=== PATIENT | female | born 1990 | race Caucasian/White ===

== ENCOUNTER 2018-08-19 14:01 | Emergency (ER) | payer OTHER ==
[2018-08-19] MEDS ORDERED: CYCLOBENZAPRINE 10 MG TABLET PO STA (14:20)
[2018-08-19] MEDS ORDERED: KETOROLAC 60 MG/2 ML VIAL IM STA (14:20)
--- NOTE | 2018-08-19 14:25 | ED Physician Documentation ---
PD HPI BACK INJURY - Stated complaint Stated Complaint: LOWER BACK PX - History obtained from History obtained from: Patient, Family - History of Present Illness Location: Lower Type of injury: Other (lifting her dog and felt a sudden onset of low back pain with numbness and tingling to the B feet. Numbness now resolved. Pain still present.) Where injury occurred: Home Timing - onset: How many hours ago (2) Timing - duration: Hours (2) Timing - details: Abrupt onset Pain level max: 10 Pain level now: 5 Quality: Pain, Spasm Improved by: Rest Worsened by: Moving, Palpating Associated symptoms: Numbness (now resolved). No: Fever, Weakness, Incontinent of urine, Unable to urinate, Hematuria Contributing factors: No: Anticoagulated, Prior back surgery, Prosthetic joint, Other injury, Work related Similar symptoms before: Has not had sx before Recently seen: Not recently seen Review of Systems Ten Systems: 10 systems reviewed and negative Constitutional: denies: Fever, Chills Ears: denies: Ear pain Nose: denies: Rhinorrhea / runny nose, Congestion Cardiac: denies: Chest pain / pressure Respiratory: denies: Cough GI: denies: Nausea, Vomiting, Diarrhea : denies: Dysuria, Frequency, Hesitancy, Unable to Void, Incontinent, Now EGA Skin: denies: Rash Musculoskeletal: denies: Neck pain Neurologic: denies: Focal weakness, Headache PD PAST MEDICAL HISTORY - Past Medical History Cardiovascular: None Respiratory: None Endocrine/Autoimmune: None 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 HEENT: None Psych: None Musculoskeletal: None Derm: None - Past Surgical History Past Surgical History: No - Present Medications Home Medications: Ambulatory Orders Medication Instructions Recorded Confirmed Cyclobenzaprine [Flexeril] 10 mg PO TID PRN #20 tablet 01/20/16 Hydrocodone/Acetaminophen 1 - 2 each PO Q6H PRN #10 tablet 01/20/16 [Hydrocodon-Acetaminophen 5-325] Ibuprofen [Motrin] 800 mg PO Q8H PRN #30 tablet 01/20/16 Cyclobenzaprine [Flexeril] 10 mg PO TID PRN #20 tablet 08/19/18 Hydrocodone/Acetaminophen 1 - 2 each PO Q6H PRN #14 tablet 08/19/18 [Hydrocodon-Acetaminophen 5-325] Meloxicam [Mobic] 15 mg PO DAILY PRN #20 tablet 08/19/18 predniSONE [Deltasone] 10 mg PO [id number] #42 tab 08/19/18 - Allergies Allergies/Adverse Reactions: Allergies Allergy/AdvReac Type Severity Reaction Status Date / Time levofloxacin AdvReac Unknown Verified 08/19/18 14:20 - Social History Does the pt smoke?: No Smoking Status: Never smoker Does the pt drink ETOH?: No Does the pt have substance abuse?: No - Immunizations Immunizations are current?: Yes - POLST Patient has POLST: No PD ED PE NORMAL - Vitals Vital signs reviewed: Yes - General General: Alert and oriented X 3, No acute distress - HEENT HEENT: Moist mucous membranes - Neck Neck: Supple, no meningeal sign - Cardiac Cardiac: RRR - Respiratory Respiratory: No respiratory distress, Clear bilaterally - Abdomen Abdomen: Soft, Non tender, Non distended - Back Back: Other (Mild midline tenderness approximately L3. No step-off or deformity. Paraspinal spasm present.) - Derm Derm: Warm and dry - Extremities Extremities: Other (Normal bilateral lower extremity patellar and ankle jerk reflexes. Normal great toe extension bilaterally. no saddle anesthesia) - Neuro Neuro: No motor deficit, No sensory deficit - Psych Psych: Normal mood Results - Vitals Vitals: Vital Signs - 24 hr 08/19/18 14:10 Temperature 37.1 C Heart Rate 56 L Respiratory 16 Rate Blood Pressure 115/90 H O2 Saturation 100 Oxygen O2 Source Room air - Rads (name of study) L spine xray Radiology: Prelim report reviewed, EMP read contemporaneously, See rad report (No fracture or subluxation. 2. Mild L4-L5 disk height loss. 3. Sacralized L5 vertebra. Developmental variant. ) PD MEDICAL DECISION MAKING - ED course Complexity details: reviewed results, re-evaluated patient, considered differential, d/w patient ED course: 28-year-old female with what appears to be acute sciatica. Will place on steroids for home as well as anti-inflammatories. Hydrocodone for breakthrough pain. No evidence of cauda equina or epidural abscess. Ambulating well. Pain well controlled. Patient counseled regarding signs and symptoms for which I believe and urgent re-evaluation would be necessary. Patient with good understanding of and agreement to plan and is comfortable going home at this time This document was made in part using voice recognition software. While efforts are made to proofread this document, sound alike and grammatical errors may occur. Departure - Departure Disposition: 01 Home, Self Care Clinical Impression: Sciatica Qualifiers: Laterality: bilateral Qualified Code(s): M54.31 - Sciatica, right side Disc herniation Qualifiers: Spinal region: lumbar Qualified Code(s): M51.26 - Other intervertebral disc displacement, lumbar region Condition: Good Instructions: ED Sciatica Follow-Up: Edison Johnson ARNP [Primary Care Provider] - Within 1 week Prescriptions: Cyclobenzaprine [Flexeril] 10 mg PO TID PRN #20 tablet PRN Reason: Spasms Hydrocodone/Acetaminophen [Hydrocodon-Acetaminophen 5-325] 1 - 2 each PO Q6H PRN #14 tablet PRN Reason: pain Meloxicam [Mobic] 15 mg PO DAILY PRN #20 tablet PRN Reason: pain predniSONE [Deltasone] 10 mg PO [id number] #42 tab Comments: Use the medications as prescribed. Return if you worsen. This should improve over the next few days. Follow-up with your doctor for further evaluation and care. Do not drink alcohol or drive while on narcotic pain medicine. Note that many narcotic pain relievers also contain tylenol/acetaminophen. Please ensure that your total dose of acetaminophen from all sources does not exceed 3 grams (3000mg) per day. You may constipated on this medication, take a stool softener such as "Colace" twice a day while you are on it. Also recommend a dkpx-zxv-tgkwsrn laxative such as senna or MiraLAX any day that you do not have a bowel movement. If you received narcotic pain medication in the emergency department, do not drive or operate machinery for the next 24 hours.
--- NOTE | 2018-08-19 16:03 | XRAY Report ---
Reason: lifting dog, sudden onset low back pain Procedure Date: 08/19/2018 Accession Number: [id number] / [id number] Procedure: XR - Lumbar Spine 2 View CPT Code: FULL RESULT: EXAM: LUMBOSACRAL SPINE RADIOGRAPHY EXAM DATE: 08/19/2018 03:24 PM. CLINICAL HISTORY: Lifting dog, sudden onset low back pain. COMPARISONS: None. TECHNIQUE: 2 views. FINDINGS: Alignment: Normal. No spondylolisthesis or scoliosis. Bones: Five lig-bbt-fpdkwds lumbar vertebral bodies are present. There is transitional anatomy at L5 which is sacralized. Vertebral bodies appear normal in height without fracture. Disks: There is mild loss of disk height at L4-L5. Facets: Satisfactory alignment. Sacroiliac Joints: Unremarkable. Soft Tissues: Normal. The visualized bowel gas pattern is normal. IMPRESSION: 1. No fracture or subluxation. 2. Mild L4-L5 disk height loss. 3. Sacralized L5 vertebra. Developmental variant. RADIA
[2018-08-19] MEDS ORDERED: oxyCODONE 5 MG TABLET PO STA (16:28)
[2018-08-19 16:33] VITALS: BP 115/78
== END 2018-08-19 16:37 | disposition home or self-care (01) ==
LOC: ED 14:01
DX: M54.31 Sciatica, right side (principal); M51.26 Other intervertebral disc displacement, lumbar region
CPT/HCPCS: 72100; 96372; 99283; A9270

== ENCOUNTER 2019-02-08 05:07 | Emergency (ER) | payer OTHER ==
[2019-02-08 05:29] LABS: BILIRUBIN,URINE NEGATIVE (NEGATIVE); GLUCOSE, URINE (UA) NEGATIVE (NEGATIVE); KETONES,URINE (UA) NEGATIVE (NEGATIVE); LEUKOCYTE ESTERASE, URINE MODERATE (NEGATIVE); NITRITE,URINE NEGATIVE (NEGATIVE); OCCULT BLOOD,URINE LARGE (NEGATIVE); PH,URINE 6.5 PH (5.0-7.5); PROTEIN,URINE 100 mg/dL (NEGATIVE); UROBILINOGEN,URINE 0.2 (NORMAL) E.U./dL (NORMAL)
[2019-02-08 05:36] LABS: CLARITY,URINE SL. CLOUDY (CLEAR)
[2019-02-08 05:37] LABS: HCG UR QUAL NEGATIVE
[2019-02-08 05:37] LABS: BACTERIA,URINE Few /HPF (None Seen); RBC,URINE TNTC /HPF (0-5); SQUAMOUS EPITHELIAL CELL,UR FEW Squamous (<= Few)
--- NOTE | 2019-02-08 06:06 | ED Physician Documentation ---
PD HPI FEMALE - Stated complaint Stated Complaint: FEM - Chief complaint Chief Complaint: Abd Pain - History obtained from History obtained from: Patient - History of Present Illness Timing - onset: Today Timing - details: Gradual onset Associated symptoms: Pelvic pain, Dysuria, Urinary frequency. 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 : Other HEENT: None Psych: None Musculoskeletal: None Derm: None - Past Surgical History Past Surgical History: No - Present Medications Home Medications: Ambulatory Orders Medication Instructions Recorded Confirmed Escitalopram [Lexapro] 1 tab PO DAILY 02/08/19 02/08/19 Nitrofurantoin Monohyd/M-Cryst 100 mg PO BID #10 capsule 02/08/19 [Macrobid 100 mg Capsule] buPROPion [Wellbutrin Xl] 150 mg PO DAILY 02/08/19 02/08/19 - Allergies Allergies/Adverse Reactions: Allergies Allergy/AdvReac Type Severity Reaction Status Date / Time levofloxacin AdvReac Unknown Verified 02/08/19 05:14 - Social History Does the pt smoke?: No Smoking Status: Never smoker Does the pt drink ETOH?: No Does the pt have substance abuse?: No - Immunizations Immunizations are current?: Yes - POLST Patient has POLST: No PD ED PE NORMAL - Vitals Vital signs reviewed: Yes - General General: Alert and oriented X 3, No acute distress, Well developed/nourished - Abdomen Abdomen: Soft, Non tender - Back Back: No CVA TTP - Derm Derm: Normal color, Warm and dry Results - Vitals Vitals: Vital Signs - 24 hr 02/08/19 02/08/19 05:11 06:32 Temperature 36.6 C 98.1 C H Heart Rate 69 54 L Respiratory 16 16 Rate Blood Pressure 116/60 107/73 O2 Saturation 100 100 Oxygen O2 Source Room air - Labs Labs: Microbiology 02/08/19 05:20 Urine Culture - Preliminary Urine,Clean Catch CULTURE IN PROGRESS. RESULTS TO FOLLOW. Laboratory Tests 02/08/19 02/08/19 05:20 05:22 Urine Color RED/BLOODY Urine Clarity SL. CLOUDY Urine pH 6.5 Ur Specific Wilder 1.015 1.015 Urine Protein 100 H Urine Glucose (UA) NEGATIVE Urine Ketones NEGATIVE Urine Occult Blood LARGE H Urine Nitrite NEGATIVE Urine Bilirubin NEGATIVE Urine Urobilinogen 0.2 (NORMAL) Ur Leukocyte Esterase MODERATE H Urine RBC TNTC H Urine WBC 11-25 H Ur Squamous Epith Cells FEW Squamous Urine Bacteria Few Ur Microscopic Review INDICATED Urine Culture Comments INDICATED Urine HCG, Qual NEGATIVE PD MEDICAL DECISION MAKING - ED course Complexity details: reviewed results, considered differential, d/w patient Departure - Departure Disposition: Home, Self Care Clinical Impression: Urinary tract infection Condition: Good Health Concerns: urinary tract infection Plan of Treatment: antibiotic as prescribed Care Goals: resolution of infection and symptoms Assessment: see diagnosis Instructions: ED UTI Cystitis Female Follow-Up: Edison Johnson ARNP [Primary Care Provider] - Prescriptions: Nitrofurantoin Monohyd/M-Cryst [Macrobid 100 mg Capsule] 100 mg PO BID #10 capsule Discharge Date/Time: 02/08/19 06:38
[2019-02-08] MEDS ORDERED: NITROFURANTOIN MACRO 100 MG CAPSULE PO STA (06:26)
[2019-02-08 06:33] VITALS: BP 107/73
== END 2019-02-08 06:38 | disposition home or self-care (01) ==
LOC: ED 05:07
DX: N39.0 Urinary tract infection, site not specified (principal)
CPT/HCPCS: 81001; 81025; 87086; 87181; 99283; 99284; A9270; 81003

== ENCOUNTER 2024-04-15 15:49 | Emergency (ER) | payer OTHER ==
--- NOTE | 2024-04-15 16:58 | ED Physician Documentation ---
History of Present Illness - Stated complaint Stated Complaint: LT SIDE ARM PX/MUELLER - Chief complaint Chief Complaint: Ext Problem - History obtained from History obtained from: Patient - History of Present Illness Timing: Yesterday Pain level max: 9 Pain level now: 7 - Additonal information Additional information: Patient is a 33-year-old female who presents to the emergency department with left shoulder and left-sided chest pain. Ongoing since yesterday, worsening today. History of rheumatoid arthritis and has had pain in this area before. She is currently on Humira every 2 weeks. No fevers. No chills. No trauma. No change with exertion, inspiration. Worse with movement, better with rest. No numbness or tingling. Patient states that the pain started in the left shoulder and has now spread to the left anterior and posterior chest. Again worse with movement, better with rest. No rash. No redness. No numbness or tingling. No swelling. 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 : Other HEENT: None Psych: Depression, Anxiety Musculoskeletal: Rheumatoid arthritis Derm: None - Past Surgical History Past Surgical History: No - Present Medications Home Medications: Ambulatory Orders Medication Instructions Recorded Confirmed Adalimumab [Humira(Cf) Pen] 40 mg SUBQ Q14D 04/15/24 04/15/24 HYDROcod/ACETAM 5/325 [[place] 5/325] 1 - 2 ea PO Q6H PRN #14 tablet 04/15/24 Hydroxychloroquine [Plaquenil] 200 mg PO BID 04/15/24 04/15/24 Levonorgestrel-Ethin Estradiol 1 each PO DAILY 04/15/24 04/15/24 [Vienva-28 Tablet] Meloxicam [Mobic] 7.5 mg PO BID PRN #20 tablet 04/15/24 predniSONE [Deltasone] 10 mg PO [id number] #42 tab 04/15/24 - Allergies Allergies/Adverse Reactions: Allergies Allergy/AdvReac Type Severity Reaction Status Date / Time levofloxacin AdvReac Unknown Verified 04/15/24 15:51 - Social History Does the pt smoke?: No Smoking Status: Never smoker Does the pt drink ETOH?: Yes Does the pt have substance abuse?: Yes Substance Use and Type: CBD oil / Products - Immunizations Immunizations are current?: Yes - POLST Patient has POLST: No PD ED PE NORMAL - Vitals Vital signs reviewed: Yes - General General: Alert and oriented X 3, No acute distress - HEENT HEENT: PERRL, Moist mucous membranes - Neck Neck: Supple, no meningeal sign - Cardiac Cardiac: RRR, Strong equal pulses - Respiratory Respiratory: No respiratory distress, Clear bilaterally - Abdomen Abdomen: Soft, Non tender, Non distended - Derm Derm: Warm and dry - Extremities Extremities: No edema, No calf tenderness / cord - Neuro Neuro: Alert and oriented X 3 - Psych Psych: Normal mood, Normal affect - Free text exam Free text exam: Tender to palpation near the left glenohumeral joint, there is limited range of motion secondary to pain. Tender to palpation across the left anterior chest wall. No crepitus. No erythema. Neurovascular intact including the axillary nerve. Otherwise normal examination of the chest, abdomen and remainder of the extremities. Results - Vitals Vitals: Vital Signs - 24 hr 04/15/24 04/15/24 04/15/24 15:53 15:57 17:57 Temperature 36.4 C L Heart Rate 89 68 78 Respiratory 16 16 18 Rate Blood Pressure 153/83 H 122/80 128/82 H O2 Saturation 100 100 100 04/15/24 18:47 Temperature Heart Rate 78 Respiratory 18 Rate Blood Pressure 126/82 H O2 Saturation 98 Oxygen O2 Source Room air - EKG (time done) 1559 EKG releavant findings:: EKG personally interpreted by author of this note. Relevant findings are: Rate: Rate (enter#) (88) Rhythm: NSR Bandy: Normal Intervals: Normal HI QRS: Normal Ischemia: Other (`) - Labs Labs: Laboratory Tests 04/15/24 04/15/24 04/15/24 17:20 17:20 17:20 WBC 11.0 H RBC 4.11 L Hgb 12.0 Hct 36.4 L MCV 88.6 MCH 29.2 MCHC 33.0 RDW 12.6 Plt Count 205 MPV 11.1 H Neut # (Auto) Not Reportable Lymph # (Auto) Not Reportable Mcdonough # (Auto) Not Reportable Eos # (Auto) Not Reportable Baso # (Auto) Not Reportable Absolute Nucleated RBC Not Reportable Total Counted 100 Band Neuts % (Manual) 0 Abnorm Lymph % (Manual) 2 Nucleated RBC % Not Reportable Neutrophils # (Manual) 6.1 Lymphocytes # (Manual) 3.7 H Monocytes # (Manual) 1.0 Eosinophils # (Manual) 0.2 Basophils # (Manual) 0.0 Differential Comment MANUAL DIFFERENTIAL WBC Morphology 1+ HYPERSEG NEUT Platelet Estimate NORMAL (130-450,000) Platelet Morphology NORMAL APPEARANCE RBC Morph Micro Appear NORMAL APPEARANCE ESR 21 H Sodium 137 Potassium 3.8 Chloride 105 Carbon Dioxide 26 Anion Gap 6.0 BUN 6 Creatinine 0.7 Estimated GFR (MDRD) 96 Glucose 84 Calcium 9.9 Total Bilirubin 0.4 AST 10 ALT 12 Alkaline Phosphatase 37 L Troponin I High Sens < 2.3 L C-Reactive Protein 7.5 H Total Protein 7.5 Albumin 4.3 Globulin 3.2 Albumin/Globulin Ratio 1.3 Lipase < 10 L - Rads (name of study) Chest x-ray Relevant Findings:: Final report received, See rad report PD Medical Decision Making - ED course Complexity details: reviewed results, re-evaluated patient, considered differential (No ST elevation MA, no aortic dissection, no PE, no tension pneumothorax, no aortic aneurysm), d/w patient ED course: Patient with left shoulder pain and left chest pain consistent with prior episodes of rheumatoid arthritis flare. No acute findings on laboratory testing other than elevated inflammatory markers, white blood cell count elevated, sed rate and CRP elevated. Troponin is negative. Symptoms not consistent with DVT. No lower extremity edema, swelling or calf pain. No other risk factors for PE. Chest x-ray does not show any acute abnormalities. We will treat as a rheumatoid arthritis flare with steroids for home. If patient fails to improve as expected, will return for further evaluation and care. Patient counseled regarding signs and symptoms for which I believe and urgent re-evaluation would be necessary. Patient with good understanding of and agreement to plan and is comfortable going home at this time This document was made in part using voice recognition software. While efforts are made to proofread this document, sound alike and grammatical errors may occur. No falls or trauma to suggest rotator cuff injury or other orthopedic etiology of her pain. Departure - Departure Disposition: 01 Home, Self Care Clinical Impression: Shoulder pain, left Qualifiers: Chronicity: acute Qualified Code(s): M25.512 - Pain in left shoulder Rheumatoid arthritis Qualifiers: Rheumatoid arthritis location: shoulder Rheumatoid factor presence: unspecified presence Laterality: left Qualified Code(s): M06.9 - Rheumatoid arthritis, unspecified Condition: Good Instructions: ED Arthritis Rheumatoid Follow-Up: CARMITA VIDES NP [Primary Care Provider] - Prescriptions: predniSONE [Deltasone] 10 mg PO [id number] #42 tab Meloxicam [Mobic] 7.5 mg PO BID PRN #20 tablet PRN Reason: Pain HYDROcod/ACETAM 5/325 [[place] 5/325] 1 - 2 ea PO Q6H PRN #14 tablet PRN Reason: Pain Comments: As we discussed your pain is likely a manifestation of your rheumatoid arthritis. Your x-ray of your chest does not show any acute abnormalities. Your heart testing is normal. Your inflammatory markers are elevated including your white blood cell count, ESR and CRP. We will place you on a steroid taper as this usually helps to control the pain from rheumatoid arthritis fairly quickly. Meloxicam as an anti-inflammatory that can help as well. You can use the hydrocodone for any breakthrough pain. Your prescriptions were sent to [facility] in [place]. I am prescribing a short course of narcotic pain medication for you. These are potentially dangerous and addictive medications that should be used carefully. These medications may constipate you. Take an xccb-iqr-kjkxxcf stool softener (docusate) twice daily with plenty of water while taking these medications. If you go 24 hours without a bowel movement, take lecb-jwq-bcivymo miralax, per package instructions. Do not drink or drive while taking these medications. If you received narcotic or sedating medications while in the emergency department, do not drive for 24 hours. Store this medication in a safe, secure place and out of reach of children. It is a violation of federal law to give or sell this medication to another person or to use in a manner other than prescribed. The ED will not refill narcotic prescriptions, including prescriptions lost or stolen. To dispose of unwanted medications: 1. [facility] at [address] in [place] has a medication drop box. They accept prescription medications (in pill form) Saturday through Saturday 9:00 a.m. to 5:00 p.m. 2. The [facility] [place] [employer] accepts prescription medications (in pill form only) for disposal year round. Call for more information. 3. Contact the [facility] for the next [facility] sponsored prescription drug collection event. , [phone], or [phone]; Forms: PCP List Discharge Date/Time: 04/15/24 18:46
[2024-04-15] MEDS: DEXAMETHASONE 10 MG/ML VIAL IVP STA (17:08)
[2024-04-15] MEDS: KETOROLAC 30 MG/ML VIAL IVP STA (17:08)
--- NOTE | 2024-04-15 17:08 | XRAY Report ---
PROCEDURE: Chest 1V INDICATIONS: Chest Pain TECHNIQUE: One view of the chest was acquired. COMPARISON: None. FINDINGS: Surgical changes and devices: None. Lungs and pleura: No pleural effusions or pneumothorax. Lungs are clear. Mediastinum: Mediastinal contours appear normal. Heart size is normal. Bones and chest wall: No suspicious bony lesions. Overlying soft tissues appear unremarkable. IMPRESSION: No acute cardiopulmonary process. Reviewed by: Isabell Fritz MD on 04/15/2024 5:06 PM PDT Approved by: Isabell Fritz MD on 04/15/2024 5:06 PM PDT Station ID: [id number]
[2024-04-15 17:25] LABS: BASOPHILS % (AUTO) 0.3 %; EOSINOPHILS % (AUTO) 0.5 %; HCT - HEMATOCRIT 36.4 % (37.0-47.0); LYMPHOCYTES % (AUTO) 28.4 %; MEAN CORPUSCULAR HEMOGLOBIN 29.2 pg (27.0-31.0); MEAN CORPUSCULAR VOLUME 88.6 fL (81.0-99.0); MEAN PLATELET VOLUME 11.1 fL (7.9-10.8); MONOCYTES % (AUTO) 13.7 %; NEUTROPHILS % (AUTO) 56.8 %; PLT - PLATELET COUNT 205 10^3/uL (130-450); RED BLOOD COUNT 4.11 10^6/uL (4.20-5.40); RED CELL DISTRIBUTION WIDTH 12.6 % (12.0-15.0)
[2024-04-15 17:31] LABS: BAND NEUTROPHILS % (MANUAL) 0 %
[2024-04-15 17:45] LABS: ALBUMIN 4.3 g/dL (3.2-5.5); ALBUMIN/GLOBULIN RATIO 1.3 (1.0-2.2); ALKALINE PHOSPHATASE 37 IU/L (42-121); ALT ALANINE AMINOTRANSFERASE 12 IU/L (10-60); AST ASPARTATE AMINOTRANSFERASE 10 IU/L (10-42); BILIRUBIN,TOTAL 0.4 mg/dL (0.2-1.0); BUN - BLOOD UREA NITROGEN 6 mg/dL (6-20); CALCIUM 9.9 mg/dL (8.5-10.3); CARBON DIOXIDE - CO2 26 mmol/L (21-32); CHLORIDE 105 mmol/L (101-111); CREATININE 0.7 mg/dL (0.6-1.3); CRP - C-REACTIVE PROTEIN 7.5 mg/dL (<0.5); GFR - MDRD 96 (>89); GLUCOSE 84 mg/dL (74-104); LIPASE < 10 U/L (11-82); POTASSIUM 3.8 mmol/L (3.5-4.5); SODIUM 137 mmol/L (135-145); TOTAL PROTEIN 7.5 g/dL (6.4-8.9)
[2024-04-15 17:46] LABS: TROPONIN I HIGH SENSITIVITY < 2.3 ng/L (2.3-14.8)
[2024-04-15 17:56] LABS: ABNORMAL LYMPHS % (MANUAL) 2 %; EOSINOPHILS # (MANUAL) 0.2 10^3/uL (0-0.7); LYMPHOCYTES # (MANUAL) 3.7 10^3/uL (1.5-3.5); LYMPHOCYTES % (MANUAL) 32 %; NEUTROPHILS # (MANUAL) 6.1 10^3/uL (1.5-6.6)
[2024-04-15 17:57] LABS: DIFFERENTIAL COMMENT MANUAL DIFFERENTIAL; PLATELET ESTIMATE, MANUAL NORMAL (130-450,000) (NORMAL); PLATELET MORPHOLOGY NORMAL APPEARANCE (NORMAL); RBC MORPHOLOGY (MULTIPLE) NORMAL APPEARANCE (NORMAL); WBC MORPHOLOGY (MULTIPLE) 1+ HYPERSEG NEUT (NORMAL)
[2024-04-15 18:51] VITALS: BP 126/82; O2SAT 98
== END 2024-04-15 18:46 | disposition home or self-care (01) ==
LOC: ED 15:49
DX: M06.9 Rheumatoid arthritis, unspecified (principal)
CPT/HCPCS: 36415; 80053; 83690; 84484; 85025; 85651; 86140; 93005; 96374; 99284